=== PATIENT | female | born 2000 | race Caucasian/White ===

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

== ENCOUNTER 2021-04-26 23:59 | Emergency (ER) | payer OTHER, MEDICAID ==
[~2021-04-26] VITALS: Ht 162.6 cm; Wt 55.8 kg
[~2021-04-26 23:59] MED LIST changes: +PHENERGAN 25 MG25 M1 PO; +PROMS25 WY RECTAL
[2021-04-27 01:17] LABS: URINE BILIRUBIN NEGATIVE (Negative); URINE BLOOD NEGATIVE (Negative); URINE CLARITY CLEAR; URINE COLOR YELLOW; URINE GLUCOSE-RANDOM NEGATIVE (Negative); URINE KETONES 1+ (Negative); URINE LEUKOCYTES-REFLEX NEGATIVE (Negative); URINE NITRITE-REFLEX NEGATIVE (Negative); URINE PROTEIN 1+ (Negative); URINE SPECIFIC GRAVITY 1.015 (1.005-1.030); URINE UROBILINOGEN 0.2 E.U./dl (0.2-1.0)
[2021-04-27 01:26] LABS: AMP/METHAMP Negative (Negative); BARBITURATES Negative (Negative); BENZODIAZEPINES Negative (Negative); COCAINE Negative (Negative); METHADONE Negative (Negative); OPIATES Negative (Negative); PCP Negative (Negative); THC POSITIVE (Negative)
[2021-04-27 01:33] LABS: CALCIUM 9.4 mg/dL (8.5-10.1); CREATININE 1.5 mg/dL (0.6-1.3)
[2021-04-27 01:38] LABS: ALBUMIN 4.6 g/dL (3.4-5.0); TOTAL PROTEIN 8.3 g/dL (6.4-8.2)
[2021-04-27 01:40] LABS: HEMATOCRIT 42.9 % (37.0-47.0); HEMOGLOBIN 13.8 gm/dL (12.0-15.0); MCH 27.4 pg (26.0-34.0); MCHC 32.1 g/dL (28.0-37.0); MCV 85.3 fL (80.0-100.0); MPV 8.6 fl. (7.2-11.1); NUCLEATED RBCS 0 /100WBC; PLATELET COUNT* 355 thou/uL (150-400); RBC 5.02 mil/uL (4.20-5.00); RDW-CV 13.5 % (10.5-14.5); WBC 19.5 thou/uL (4.0-11.0)
[2021-04-27 04:02] LABS: ABSOLUTE BASOPHILS 0.2 thou/uL (0.0-0.2); ABSOLUTE LYMPHOCYTES 2.1 thou/uL (0.8-5.3); ABSOLUTE MONOCYTES 1.4 thou/uL (0.0-1.2); ABSOLUTE NEUTROPHILS 15.8 thou/uL (1.6-8.1); PLATELET ESTIMATE ADEQUATE
[2021-04-27] MEDS ORDERED: APAP W/CODEINE1 TA2 PO (05:01)
[2021-04-27] MEDS ORDERED: ZOFRAN ODT4 MG PO (05:01)
[2021-04-27 05:20] VITALS: BP 130/70
--- NOTE | 2021-04-27 12:22 | EKG ---
[place] [address] ELECTROCARDIOGRAM REPORT Name: JULES CASTILLO Room: [facility]#: [id number] Admission: 04/26/21 Attend Phys: Discharge: 04/27/21 Date of : 01 Date of Service: 04/27/21 0209 Report #: [id number] THIS REPORT FOR: //name// [facility] ED Test Date: 2021-04-27 Test Time: 02:09:11 Pat Name: JULES CASTILLO Department: Room: Gender: [place]: [place] : 2000 Requested By: Roxann Gay Order Number: [id number] MD: Brandyn Isbell Measurements Intervals [place] Rate: 82 P: 84 [place]: 157 QRS: 87 QRSD: 99 T: 52 QT: 398 QTc: 465 Interpretive Statements Sinus rhythm Compared to ECG 11/28/2020 02:37:40 No significant changes Electronically Signed On 04-27-2021 12:21:59 APPLIED ANTHROPOLOGIST by Brandyn Isbell [email or web address] <ELECTRONICALLY SIGNED> By: Brandyn Isbell MD, [facility] 04/27/21 1221 8 8 Brandyn Isbell MD, [facility] /EPI
== END 2021-04-27 05:20 | disposition home or self-care (01) ==
LOC: M.ERS 23:59
PROVIDERS: Emergency Medicine
DX: R56.9 Unspecified convulsions (principal); Z20.822 Contact with and (suspected) exposure to COVID-19; R11.2 Nausea with vomiting, unspecified; K21.9 Gastro-esophageal reflux disease without esophagitis; Z88.0 Allergy status to penicillin; Z90.89 Acquired absence of other organs; Z91.02 Food additives allergy status

== ENCOUNTER 2021-06-03 07:24 | Emergency (ER) | payer OTHER, MEDICAID ==
[~2021-06-03] VITALS: Ht 165.1 cm; Wt 61.2 kg
[~2021-06-03 07:24] MED LIST changes: +APAP W/CODEINE1 TA2 PO
[2021-06-03 10:17] LABS: HEMATOCRIT 47.2 % (37.0-47.0); HEMOGLOBIN 15.7 gm/dL (12.0-15.0); MCHC 33.2 g/dL (28.0-37.0); MCV 84.5 fL (80.0-100.0); NUCLEATED RBCS 0 /100WBC; PLATELET COUNT* 338 thou/uL (150-400); RBC 5.59 mil/uL (4.20-5.00); RDW-CV 13.7 % (10.5-14.5); WBC 12.1 thou/uL (4.0-11.0)
[2021-06-03 10:45] LABS: ALBUMIN 4.4 g/dL (3.4-5.0); CALCIUM 9.1 mg/dL (8.5-10.1); CREATININE 0.9 mg/dL (0.6-1.3); POTASSIUM 3.6 mmol/L (3.5-5.1); TOTAL PROTEIN 8.6 g/dL (6.4-8.2)
[2021-06-03 10:49] LABS: ABSOLUTE BASOPHILS 0.1 thou/uL (0.0-0.2); ABSOLUTE LYMPHOCYTES 1.8 thou/uL (0.8-5.3); ABSOLUTE MONOCYTES 0.2 thou/uL (0.0-1.2); ABSOLUTE NEUTROPHILS 9.9 thou/uL (1.6-8.1); PLATELET ESTIMATE ADEQUATE
[2021-06-03 13:01] LABS: URINE BILIRUBIN NEGATIVE (Negative); URINE BLOOD NEGATIVE (Negative); URINE CLARITY CLEAR; URINE COLOR YELLOW; URINE GLUCOSE-RANDOM NEGATIVE (Negative); URINE KETONES 2+ (Negative); URINE LEUKOCYTES-REFLEX NEGATIVE (Negative); URINE NITRITE-REFLEX NEGATIVE (Negative); URINE PROTEIN NEGATIVE (Negative); URINE SPECIFIC GRAVITY <= 1.005 (1.005-1.030)
[2021-06-03 13:12] LABS: AMP/METHAMP Negative (Negative); BARBITURATES Negative (Negative); BENZODIAZEPINES Negative (Negative); COCAINE Negative (Negative); METHADONE Negative (Negative); OPIATES Negative (Negative); PCP Negative (Negative); THC POSITIVE (Negative)
[2021-06-03] MEDS ORDERED: FLEXERIL PO (13:26)
[2021-06-03] MEDS ORDERED: ZOFRAN ODT4 MG DISSOLVE (13:26)
[2021-06-03] MEDS ORDERED: BENTYL 10 MG CA10 M1 PO (13:26)
[2021-06-03 13:40] VITALS: BP 125/75
--- NOTE | 2021-06-04 13:09 | EKG ---
[place] [address] ELECTROCARDIOGRAM REPORT Name: JULES CASTILLO Room: [facility]#: [id number] Admission: 06/03/21 Attend Phys: Discharge: 06/03/21 Date of : 01 Date of Service: 06/03/21 1011 Report #: [id number] THIS REPORT FOR: //name// [facility] ED Test Date: 2021-06-03 Test Time: 10:11:09 Pat Name: JULES CASTILLO Department: Room: Gender: F Class A [employer]: [id number] : 2000 Requested By: Juan Rodriguez Order Number: [id number] MD: Rogelio Wilkerson Measurements Intervals [place] Rate: 63 P: 49 [place]: 153 QRS: 91 QRSD: 95 T: 76 QT: 404 QTc: 414 Interpretive Statements Sinus rhythm Borderline right axis deviation Baseline wander in lead(s) V6 Compared to ECG 04/27/2021 02:09:11 No significant changes Electronically Signed On 06-04-2021 13:09:03 PRIMARY OPERATOR by Rogelio Wilkerson [email or web address] <ELECTRONICALLY SIGNED> By: Rogelio Wilkerson MD, [facility] 06/04/21 1309 1011 1011 Rogelio Wilkerson MD, [facility] /EPI
== END 2021-06-03 13:40 | disposition home or self-care (01) ==
LOC: M.ERS 07:24
PROVIDERS: Emergency Medicine Emergency Medical Services
DX: R56.9 Unspecified convulsions (principal); Z20.822 Contact with and (suspected) exposure to COVID-19; R11.2 Nausea with vomiting, unspecified; R10.84 Generalized abdominal pain; J02.9 Acute pharyngitis, unspecified; R19.7 Diarrhea, unspecified; R07.89 Other chest pain; K21.9 Gastro-esophageal reflux disease without esophagitis; F17.210 Nicotine dependence, cigarettes, uncomplicated; Z98.890 Other specified postprocedural states; Z88.1 Allergy status to other antibiotic agents; Z91.018 Allergy to other foods; Z88.8 Allergy status to other drugs, medicaments and biological substances